=== PATIENT | male | born 1950 | race Caucasian/White ===

== ENCOUNTER 2017-01-08 16:31 | Emergency (ER) | payer MEDICARE, OTHER ==
[~2017-01-08 16:31] MED LIST: ACET500CAP PO; ASAB PO; CHEMO THERAPY IV; COZAAR100 MG PO; DEX4 PO; DSS PO; FERROUS SULF325 M1 PO; FLOMAX4 PO; FOLIC PO; HALF81 PO; HYDROCHLOROT25 MG PO; LEVAQUIN750 MG PO; LIPITOR10 PO; MULTIPLE VIT PO; MULTIVIT/MIN PO; NYQUIL PO; Nyquil PO; PRILO PO; [UNRECOGNIZED DRUG - REMARK] PO
[2017-01-08 16:39] LABS: BASOPHILS 0.2 %; BASOPHILS ABSOLUTE 0.02 10/3/uL (0.0-0.16); EOSINOPHILS ABSOLUTE 0.09 10/3/uL (0.0-0.53); ER CBC TAT 0 Hrs 07 Mins; HEMATOCRIT 32.7 % (40.0-51.0); HEMOGLOBIN 11.7 g/dL (13.6-17.8); IMMATURE GRANULOCYTES 1.2 %; IMMATURE GRANULOCYTES ABSOLUTE 0.11 10/3/uL (0.0-0.11); LYMPHOCYTES 11.3 %; LYMPHOCYTES ABSOLUTE 1.03 10/3/uL (0.67-4.30); MANUAL DIFF NO %; MEAN CORPUS HGB CONC 35.8 g/dL (32.0-36.0); MEAN CORPUSCULAR HEMOGLOB 37.5 pg (26.0-34.0); MEAN CORPUSCULAR VOLUME 104.8 fL (80-100); MEAN PLATELET VOLUME 8.6 fL (9.2-13.0); MONOCYTES 13.8 %; MONOCYTES ABSOLUTE 1.26 10/3/uL (0.21-1.20); NEUTROPHILS 72.5 %; NEUTROPHILS ABSOLUTE 6.59 10/3/uL (2.02-8.40); PLATELET COUNT 223 10/3/uL (150-400); RBC DISTRIBUTION WIDTH 13.9 % (12.0-16.0); RED CELL COUNT 3.12 10/6/uL (4.7-6.1); WHITE BLOOD CELLS 9.1 10/3/uL (4.5-10.5)
[2017-01-08 16:46] LABS: PROTIME (NOT ORD) 13.3 SEC (12.0-14.5)
[2017-01-08 16:54] LABS: A/G RATIO 1.2 (0.7-1.9); ALBUMIN 3.8 G/DL (3.5-5.0); ALKALINE PHOSPHATASE 85 U/L (45-117); BUN (BLOOD UREA NITROGEN) 10 MG/DL (6-23); CALCIUM, SERUM 9.2 MG/DL (8.5-10.4); CHLORIDE, SERUM 98 MMOL/L (96-112); CO2 (CARBON DIOXIDE) 27 MMOL/L (24-34); CREATININE 1.11 MG/DL (0.70-1.30); GFR AFRICAN AMERICAN 79 ML/MIN (>=60); GFR NON AFRICAN AMERICAN 68 ML/MIN (>=60); GLOBULIN 3.2 G/DL (2.5-4.1); GLUCOSE, SERUM 96 MG/DL (60-99); POTASSIUM, SERUM 4.2 MMOL/L (3.5-5.3); SGOT(AST) 25 U/L (5-40); SGPT(ALT) 20 U/L (5-65); SODIUM, SERUM 135 MMOL/L (135-148); TOTAL BILIRUBIN 1.3 MG/DL (0-1.2)
[2017-01-08 17:51] LABS: ASCORBIC ACID (UR NOT ORDER) NEG (NEG); BILIRUBIN, URINE NEGATIVE (NEG); ER URINALYSIS TAT 0 Hrs 07 Mins; KETONE, URINE NEGATIVE (NEG); LEUKOCYTE ESTERASE(NOT OR NEG (NEG); NITRITE (URINE) NEG (NEG); WBC (NOT ORDERED) (RFLEX) 1 (0-5)
[2017-01-08] MEDS ORDERED: FERROUS SULF325 M1 PO (18:05)
[2017-01-08] MEDS ORDERED: PRILO PO (18:05)
[2017-01-08] MEDS ORDERED: FOLIC PO (18:05)
[2017-01-08] MEDS ORDERED: MULTIVITAMI1 PO (18:06)
[2017-01-08] MEDS ORDERED: PRIN10 PO (18:06)
[2017-01-08] MEDS ORDERED: CHEMOTHERAPY IV (18:06)
[2017-01-08] MEDS ORDERED: ACET500CAP PO (18:07)
[2017-01-08] MEDS ORDERED: CLARIT10 PO (18:07)
[2017-01-18] MEDS ORDERED: SODCLTAB PO (22:00)
[2017-01-18] MEDS ORDERED: KEPPRA500 PO (22:00)
[2017-01-18] MEDS ORDERED: PRIN10 PO (22:00)
[2017-01-18] MEDS ORDERED: FOLIC PO (22:01)
[2017-01-18] MEDS ORDERED: PRILO PO (22:02)
[2017-01-18] MEDS ORDERED: [UNRECOGNIZED DRUG - OTHER] IV (22:04)
[2017-01-18] MEDS ORDERED: MULTIVIT/MIN PO (22:05)
[2017-01-18] MEDS ORDERED: CLARIT10 PO (22:06)
[2017-01-18] MEDS ORDERED: ACET500CAP PO (22:07)
[2017-01-18] MEDS ORDERED: FERROUS SULF325 M1 PO (22:08)
[2017-05-05] MEDS ORDERED: ANOROELLIPTA INH (10:17)
== END 2017-01-08 19:02 | disposition home or self-care (01) ==
LOC: ER 16:31
PROVIDERS: Emergency Medicine
DX: R56.9 Unspecified convulsions (principal); C34.90 Malignant neoplasm of unspecified part of unspecified bronchus or lung; J44.9 Chronic obstructive pulmonary disease, unspecified; I10 Essential (primary) hypertension; Z85.46 Personal history of malignant neoplasm of prostate; Z79.899 Other long term (current) drug therapy
CPT/HCPCS: 70450; 71010; 80053; 81001; 85025; 85610; 93005; 99285; A9270-GY

== ENCOUNTER 2017-01-18 22:13 | Inpatient (IN) | payer MEDICARE, OTHER ==
--- NOTE | ~2017-01-18 | EGD ---
EGD REPORT [facility] [address] [address] NAME: PANTERA BERMUDEZ : [birth year] STATUS : ADM IN PAT#: [id number] AGE: 66 ADM/REG DATE : 01/20/17 MR#: [id number] REPORT SERV DATE: 01/21/17 DICTATED BY: ELFEGO ERNANDEZ DATE: 01/21/17 REPORT STATUS : Draft TRANSCRIBED BY: [facility] DATE: 01/21/17 Pulmonology Patient Name: Pantera Bermudez Procedure Date: 01/21/2017 5:39 PM Date of : 1950 Attending MD: SOLANGE ERNANDEZ MD Procedure Date No Time: 01/21/2017 Procedure: Flexible rigid bronchoscopy Indications: Obstructive MACIEJ lesion emanating from the RUL Providers: SOLANGE ERNANDEZ MD Referring MD: JULIUS TREVINO Medicines: Lidocaine 2% 20 mL Complications: No immediate complications Procedure: Pre-Anesthesia Assessment: - A History and Physical has been performed. Patient meds and allergies have been reviewed. The risks and benefits of the procedure and the sedation options and risks were discussed with the patient. All questions were answered and informed consent was obtained. Patient identification and proposed procedure were verified prior to the procedure by the physician and the nurse in the pre-procedure area in the procedure room. Mental Status Examination: alert and oriented. Respiratory Examination: poor air movement. CV Examination: normal and RRR, no murmurs, no S3 or S4. ASA Grade Assessment: IV - A patient with severe systemic disease that is a constant threat to life. After reviewing the risks and benefits, the patient was deemed in satisfactory condition to undergo the procedure. The anesthesia plan was to use general anesthesia. Immediately prior to administration of medications, the patient was re-assessed for adequacy to receive sedatives. The heart rate, respiratory rate, oxygen saturations, blood pressure, adequacy of pulmonary ventilation, and response to care were monitored throughout the procedure. The physical status of the patient was re-assessed after the procedure. After obtaining informed consent, the Bronchoscope was introduced through the mouth, via the endotracheal tube (the patient was intubated for the procedure) and advanced to the tracheobronchial tree. The procedure was accomplished without difficulty. The patient tolerated the procedure well. Findings: The endotracheal tube is in good position. The visualized portion of the trachea is of normal caliber. The luis eduardo is sharp. The tracheobronchial EGD REPORT [address] [address] NAME: PANTERA BERMUDEZ : [birth year] STATUS : ADM IN [facility]#: [id number] AGE: 66 ADM/REG DATE : 01/20/17 MR#: [id number] REPORT SERV DATE: 01/21/17 DICTATED BY: ELFEGO ERNANDEZ DATE: 01/21/17 REPORT STATUS : Draft TRANSCRIBED BY: [employer] DATE: 01/21/17 tree was examined to at least the first subsegmental level. Obstructive MCAIEJ lesion emanating from the RUL with approximately 50-75% obstruction. The airway was dilated with a [employer] CRE balloon 10-11-12 to 12 mm OD. The FIO2 was lowered to less than 40%, and argon plasma coagulation therapy (0.8 L /min, 15 Russell) was performed for destruction of tissue/tumor. The patient was then reintubated with a Rigid Dumon 12 mm bronchoscope in the usual atraumatic fashion and selectively advanced into the MACIEJ. A 12 x 40 Merit Endotek Hybrid Stent was successfully deployed into the MACIEJ/RBI. See pictures. Impression: 12 x 40 Merit Endotek Hybrid Stent was successfully deployed into the MACIEJ/RBI. See pictures. Recommendation: - Await test results. - Chest X-ray post-procedure. - Mandatory Nebulizers: Albuterol and Mucomyst Attending Participation: I personally performed the entire procedure. SOLANGE ERNANDEZ MD 01/21/2017 6:25 PM This report has been signed electronically. Number of Addenda: 0 Note Initiated On: 01/21/2017 5:39 PM [address] [phone]
--- NOTE | ~2017-01-18 | CONSULT ---
Radiation Oncology Consult [address] [address] NAME: MARCIE BERMUDEZ : [birth year] STATUS : ADM IN PAT#: [id number] AGE: 66 ADM/REG DATE : 01/20/17 MR#: [id number] REPORT SERV DATE: 01/21/17 DICTATED BY: UGO HICKMAN DATE: 01/21/17 REPORT STATUS : Draft TRANSCRIBED BY: MODL DATE: 01/21/17 RADIATION ONCOLOGY CONSULTATION CHIEF COMPLAINT: Hemoptysis. HISTORY OF PRESENT ILLNESS: Mr. Bermudez is a pleasant, 66-year-old gentleman with metastatic non-small cell lung cancer. He has been treated with carboplatin and Abraxane on , maintenance pemetrexed, stereotactic radiosurgery for single brain metastasis and most recently, on clinical trial [id number]. He presented to the hospital with hemoptysis and was taken for bronchoscopy yesterday. Dr. Bowden took biopsies and stopped the patient's bleeding. He has no hemoptysis today. Dr. Bowdne plans to bronch again later today and place a stent. Currently, Mr. Bermudez is resting comfortably in bed. I was consulted to discuss possible palliative radiation therapy after the placement of the stent. PAST MEDICAL HISTORY: Prostate cancer in 2013, GERD in 2004, hyperlipidemia in 2003, hypertension in 2003. Previous stereotactic radiosurgery to the brain. SOCIAL HISTORY: The patient is . Retired. Quit smoking 12 years ago. FAMILY HISTORY: No family history of malignancy. REVIEW OF SYSTEMS: Comprehensive review of systems discussed in detail with Mr. Bermudez. Pertinent positives and negatives are included above in history of present illness. ALLERGIES: NO KNOWN DRUG ALLERGIES. MEDICATIONS: Medication list reviewed with the patient, included the patient's chart. PHYSICAL EXAMINATION: GENERAL: The patient is awake, alert, oriented, in no acute distress. VITAL SIGNS: Afebrile. Vital signs stable. HEENT: Extraocular movements are intact. Sclerae anicteric. Oral cavity is benign without erythema. NECK: Supple. No thyromegaly. LYMPHATICS: No cervical, supraclavicular, or axillary lymphadenopathy palpated. LUNGS: Clear to auscultation bilaterally. Appropriate work of breathing. HEART: Regular rate. Normal sinus rhythm. No murmurs, rubs, or gallops. ABDOMEN: Soft, nontender, nondistended. No hepatosplenomegaly. No apparent hernias. EXTREMITIES: No cyanosis, clubbing, or edema. SKIN: No rashes. No obvious jaundice. LABS AND OTHER DATA: As described above. ASSESSMENT/PLAN: 66-year-old gentleman with metastatic non-small cell lung cancer with new Radiation Oncology Consult [address] [place]. [address] NAME: MARCIE BERMUDEZ : [birth year] STATUS : ADM IN PAT#: [id number] AGE: 66 ADM/REG DATE : 01/20/17 MR#: [id number] REPORT SERV DATE: 01/21/17 DICTATED BY: UGO HICKMAN DATE: 01/21/17 REPORT STATUS : Draft TRANSCRIBED BY: LEANDRA DATE: 01/21/17 episode of hemoptysis while on clinical trial. I will discuss this case with Dr. Escalera. I plan to deliver a short course of palliative radiation therapy to the endobronchial mass after stent placement. Mr. Bermudez is scheduled to follow up with me in two weeks and we will keep this visit and plan to do CT simulation the same day. I plan to deliver approximately 3000 cGy in 10 fractions utilizing a 3D conformal approach. INFORMED CONSENT: The risks, benefits, and alternatives of this treatment have been discussed in detail with Mr. Bermudez. He wishes to proceed. I appreciate the opportunity to be involved in his care. MOOK/LEANDRA Ugo Hickman M.D. / [id number] CC: MD Edison Aquino M.D. Krishnendu Bhadra, M.D. Bertrand Marquess Anz III, M.D.
--- NOTE | ~2017-01-18 | DS ---
Discharge Summary [address] [place]. [address] NAME: MARCIE BERMUDEZ : [birth year] STATUS : DIS IN PAT#: [id number] AGE: 66 ADM/REG DATE : 01/20/17 MR#: [id number] REPORT SERV DATE: 01/23/17 DICTATED BY: JESSICA MUNOZ DATE: 01/22/17 REPORT STATUS : Draft TRANSCRIBED BY: MODL DATE: 01/22/17 ADMISSION DATE: 01/20/2017 DISCHARGE DATE: 01/22/2017 DISCHARGE DIAGNOSES: 1. Hemoptysis, status post bronchoscopy on 01/21/[address] Bowden. Stent placed. 2. Non-small cell lung cancer, right upper lobe with PEDODONTIST metastasis followed by Dr. Escalera. 3. Gastroesophageal reflux disease, stable. 4. Hypertension, stable. 5. Chronic obstructive pulmonary disease, stable. IMAGIN. Chest x-ray on 01/18/2017, impression, status post treatment for right upper lobe lung carcinoma. Residual right upper lobe lung mass. Interstitial thickening in the medial aspect of the right upper lobe. 2. CT of chest on 01/18/2017, impression, compared to prior study 10/09/2015, mass in the right upper lobe is decreased in size. However, there is a residual mass in the right superior hilar region measuring 5.7 cm x 2.9 cm. Previously, the mass measured 6 cm x 3 cm. Mass encompasses and occludes the right upper lobe bronchus and surrounds the bronchus intermedius. Tissue surrounding the bronchus intermedius is new compared to the previous study. Right upper lobe bronchus was occluded in the prior study. Enlarging paratracheal lymph nodes. Right paratracheal node measuring 3 x 3.3 cm transversely and 1.7 cm AP dimension previously measured 2.6 cm transversely and 1.1 cm AP dimension. Multiple parenchymal nodular densities in the right upper lobe were present on prior study. Most prominent limb of the left adrenal gland. This appears different in the axilla imaging comparing the CT chest studies. However, coronal demonstrates left adrenal gland is unchanged in appearance. The left adrenal gland has a different appearance on 10/11/2015, two days following the chest CT of 10/09/2015. I aspect the left adrenal gland is unchanged and the different appearance has to do with difference in respiratory effort. 3. Chest x-ray on 01/20/2017, no post procedure pneumothorax. 4. Chest x-ray on 01/21/2017, impression, interval placement of right mainstem endobronchial stent extending towards the bronchus intermedius. Mild improved patchy right perihilar consolidation. 5. Bronchoscopy on 01/20/[address] Bowden, impression, right on-site evaluation, preliminary cytology is positive for adenocarcinoma. Final results are pending. Additional biopsies held for future mononuclear testing. 6. Flexible rigid bronchoscopy, Dr. Bowden, 01/21/2017, impression, 12 x 40 Merit Endotek hybrid stent was successfully deployed into the MACIEJ/RBI. CONSULTATIONS: 1. Pulmonary, Dr. Shafer. 2. Radiation Oncology, Dr. Hickman. COURSE OF HOSPITAL STAY: Please refer to history and physical dictated by Dr. Canas on 01/19/2017 for complete admission details as well as consultation note by Dr. Shafer and Dr. Discharge Summary [address] [address] NAME: MARCIE BERMUDEZ : [birth year] STATUS : DIS IN PAT#: [id number] AGE: 66 ADM/REG DATE : 01/20/17 MR#: [id number] REPORT SERV DATE: 01/23/17 DICTATED BY: JESSICA MUNOZ DATE: 01/22/17 REPORT STATUS : Draft TRANSCRIBED BY: MODL DATE: 01/22/17 Marylou. This patient is a 66-year-old gentleman who presented with complaints of hemoptysis. He does present with a history of non-small cell lung cancer with known metastasis to the brain. The patient stated prior to admission he started coughing up blood. He does state that he has a chronic cough due to compression of the right upper lobe mass on the right upper lobe bronchus. The patient was admitted to the hospital for further treatment. 1. Hemoptysis, status post bron and flexible rigid bronchoscopy by Dr. Bowden. The patient did undergo above procedures, was able to tolerate well. Following procedure, patient had no bleeding noted. He will follow up as outpatient. He was provided a nebulizer as well as medication prior to discharge. 2. Non-small cell lung cancer, right upper lobe with PEDODONTIST metastasis. Oncology was consulted to follow the patient during his stay. Following the above procedures, the patient was evaluated by Dr. Hickman of Radiation Oncology. The patient discussed with Dr. Hickman possible palliative radiation therapy to the endobronchial mass after stent placement. Mr. Bermudez has a followup appointment in two weeks. Discussed treatment plan. 3. Gastroesophageal reflux disease. This was stable during the patient's hospitalization. He will continue home medications. 4. Hypertension. The patient's blood pressure has remained stable. We will continue home medications. 5. Chronic obstructive pulmonary disease. The patient will continue home medications as well as home nebulizer for shortness of breath. 6. 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 The patient's anemia has been monitored during his hospital stay. He has required no transfusions during this time. Hemoglobin upon discharge was 8.0, hematocrit 23.2. DISCHARGE MEDICATIONS: 1. Keppra 500 mg one p.o. twice daily. 2. Lisinopril 10 mg one p.o. daily. 3. Prilosec 20 mg one p.o. daily. 4. Albuterol inhaler nebulizer p.r.n. for shortness of breath. 5. Sodium chloride 1 g one p.o. twice daily. 6. Folic acid 1 p.o. every morning. 7. Clinical trial per Oncology. 8. Multivitamin one p.o. daily. 9. Claritin 10 mg one p.o. every morning. 10.Tylenol 500 mg p.o. p.r.n. for pain. 11.Ferrous sulfate 325 mg one p.o. every morning. The patient is being discharged home in hemodynamically stable condition. We will follow up with Dr. Escalera and Dr. Hickman outpatient. Discharge took less than 30 minutes. [facility] Discharge Summary [address] [place]. [address] NAME: MARCIE BERMUDEZ : [birth year] STATUS : DIS IN [facility]#: [id number] AGE: 66 ADM/REG DATE : 01/20/17 MR#: [id number] REPORT SERV DATE: 01/23/17 DICTATED BY: JESSICA MUNOZ DATE: 01/22/17 REPORT STATUS : Draft TRANSCRIBED BY: MODL DATE: 01/22/17 Jessica Munoz NP / [id number] CC: MD Edison Aquino M.D.
--- NOTE | ~2017-01-18 | CN ---
Consultation Report [address] [facility] [place]. [address] NAME: MARCIE BERMUDEZ : [birth year] STATUS : ADM Whit PAT#: [id number] AGE: 66 ADM/REG DATE : 01/18/17 MR#: [id number] REPORT SERV DATE: 01/20/17 DICTATED BY: MEGAN SHAFER DATE: 01/19/17 REPORT STATUS : Draft TRANSCRIBED BY: MODL DATE: 01/19/17 PULMONARY CONSULT NOTE DATE OF CONSULTATION: 01/19/2017 REASON FOR CONSULTATION: Hemoptysis. HISTORY OF PRESENT ILLNESS: Mr. Bermudez is a 66-year-old gentleman with a past medical history of known right upper lobe lung cancer with brain metastasis who was seen in the floor with his son and at the bedside. Patient noted that over the last several days he started having increased sputum production minimally. He then had pink sputum which turned into bright red blood. He denies having any fever, but did have some chills. He also notes that he had some radiation to the brain for brain metastases around two weeks ago. Patient states that his cancer was treated, however, this was doing well, but his tumor seems to have grown recently. Otherwise, patient has no further complaints. PAST MEDICAL HISTORY: Metastatic lung cancer, metastatic lung cancer to the brain, history of prostate cancer, COPD, reflux, hypertension, hyperlipidemia. HOME MEDICATIONS: Patient could not remember the medication list, reviewed home medications. Patient is on no antiplatelet or anticoagulation. ALLERGIES: NO KNOWN DRUG ALLERGIES. FAMILY HISTORY: Father had coronary artery disease, mother had congestive heart failure. SOCIAL HISTORY: Patient has a 40 plus pack year history of smoking. He has now quit. Occasional alcohol, no drug use. REVIEW OF SYSTEMS: All pertinent review of systems reviewed and is otherwise negative PHYSICAL EXAMINATION: VITAL SIGNS: Afebrile, heart rate anywhere between 74 and 116, respiratory rate 16 to 18. Oxygen saturation 95% on 2 L nasal cannula. Blood pressure currently 107 to 133. GENERAL: Patient is alert and oriented, no acute distress. NEUROLOGIC: Cranial nerve exam is normal. ENT: No JVD. PULMONARY: Patient actually has clear breath sounds bilaterally, minimal amount of rhonchorous breath sounds. CARDIAC: Regular rate, no murmurs. ABDOMEN: Soft, nontender, nondistended. EXTREMITIES: No lower extremity edema. Consultation Report [address] [address] NAME: MARCIE BERMUDEZ : [birth year] STATUS : ADM Whit PAT#: [id number] AGE: 66 ADM/REG DATE : 01/18/17 MR#: [id number] REPORT SERV DATE: 01/20/17 DICTATED BY: MEGAN SHAFER DATE: 01/19/17 REPORT STATUS : Draft TRANSCRIBED BY: MODL DATE: 01/19/17 LABORATORY EXAMINATION: Minimal anemia, good platelet count. INR 1. No abnormal kidney dysfunction. IMAGING: CT scan of the chest done 01/18/2017 shows a large right upper lobe tumor with endobronchial disease. Patient also has underlying lymphadenopathy. ASSESSMENT AND PLAN: Mr. Bermudez is a 66-year-old gentleman with a past medical history noted above who presents with what seems to be hemoptysis most likely from endobronchial cancer. After speaking with the patient of this finding, we agreed that we will undergo a bronchoscopy for airway examination, biopsy either through transbronchial needle aspiration or EBUS, and most likely may need to have a debulking procedure. I have asked my colleague, Dr. Bowden, to examine the images and consider bronchoscopy in the next 24 hours. Orders with endoscopy have been placed. Thank you very much for this consultation and allowing us to participate in your patient's care, please call us with any further questions or concerns. HFQ/MODHussein Megan Shafer MD / [id number] CC: Soila Gentile M.D.
--- NOTE | ~2017-01-18 | EGD ---
EGD REPORT [facility] [address] [address] NAME: PANTERA BERMUDEZ : 46 STATUS : ADM Whit PAT#: [id number] AGE: 66 ADM/REG DATE : 01/18/17 MR#: [id number] REPORT SERV DATE: 01/20/17 DICTATED BY: ELFEGO ERNANDEZ DATE: 01/20/17 REPORT STATUS : Draft [facility]ANSCR[facility]ED [facility]: [facility] DATE: 01/20/17 Pulmonology Patient Name: Pantera Bermudez Procedure Date: 01/20/2017 4:12 PM Date of : 1950 Attending MD: SOLANGE ERNANDEZ MD Procedure Date No Time: 01/20/2017 Procedure: Bronchoscopy Indications: Right upper lobe tumor and hemoptysis Providers: SOLANGE ERNANDEZ MD Referring MD: JULIUS TREVINO Medicines: Lidocaine 2% 20 mL Complications: No immediate complications Procedure: Pre-Anesthesia Assessment: - A History and Physical has been performed. Patient meds and allergies have been reviewed. The risks and benefits of the procedure and the sedation options and risks were discussed with the patient. All questions were answered and informed consent was obtained. Patient identification and proposed procedure were verified prior to the procedure by the physician and the nurse in the pre-procedure area in the procedure room. Mental Status Examination: alert and oriented. Airway Examination: normal oropharyngeal airway. Respiratory Examination: poor air movement. CV Examination: normal and RRR, no murmurs, no S3 or S4. ASA Grade Assessment: IV - A patient with severe systemic disease that is a constant threat to life. After reviewing the risks and benefits, the patient was deemed in satisfactory condition to undergo the procedure. The anesthesia plan was to use general anesthesia. Immediately prior to administration of medications, the patient was re-assessed for adequacy to receive sedatives. The heart rate, respiratory rate, oxygen saturations, blood pressure, adequacy of pulmonary ventilation, and response to care were monitored throughout the procedure. The physical status of the patient was re-assessed after the procedure. Findings: The endotracheal tube is in good position. The visualized portion of the trachea is of normal caliber. The luis eduardo is sharp. The tracheobronchial tree was examined to at least the first subsegmental level. Large friable tumor emanating from the RUL with greater 75% airway obstruction. Bronchoalveolar lavage was performed in the right upper lobe of the lung and sent for routine cytology. 30 mL of fluid were instilled. 10 mL were returned. The return was blood-tinged. EGD REPORT [address] [address] NAME: PANTERA BERMUDEZ : [birth year] STATUS : ADM Whit PAT#: [id number] AGE: 66 ADM/REG DATE : 01/18/17 MR#: [id number] REPORT SERV DATE: 01/20/17 DICTATED BY: ELFEGO ERNANDEZ DATE: 01/20/17 REPORT STATUS : Draft TRANSCRIBED BY: [employer] DATE: 01/20/17 Brushings were obtained in the right upper lobe of the lung and sent for routine cytology. One sample was obtained. Endobronchial biopsies were performed in the right upper lobe of the lung using a forceps and sent for pathology evaluation and histopathology examination. Two samples were obtained. Attempted cautery snare x 3 minor debulking of the large endobronchial tumor. Additional biopsies were sent for histopathology The FiO2 was lowered to less than 40% and argon plasma coagulation therapy (0.8 L/min, 15 Russell) was performed for destruction of tissue and hemostasis. Balloon bronchoplasty was performed with CRE 10-11-12 balloon to 12 mm OD. Impression: Rapid On-Site Evaluation (LIDIA): Preliminary cytology is POSITIVE for adenocarcinoma (final results are pending). Additional biopsies held for future molecular testing. Recommendation: - Await test results. - Chest X-ray. - Follow up with bronchoscopist tomorrow. - Flexible Rigid Bronchoscopy tomorrow for airway stent placement. - Refer to/consult with Radiation Oncology. Attending Participation: I personally performed the entire procedure. SOLANGE ERNANDEZ MD 01/20/2017 6:00 PM This report has been signed electronically. Number of Addenda: 0 Note Initiated On: 01/20/2017 4:12 PM [address] [id number]
--- NOTE | ~2017-01-18 | HP ---
History And Physical [id number] [place]. [address] NAME: MARCIE BERMUDEZ : [birth year] STATUS : ADM Whit PAT#: [id number] AGE: 66 ADM/REG DATE : 01/18/17 MR#: [id number] REPORT SERV DATE: 01/19/17 DICTATED BY: TOBI SANTOYO DATE: 01/19/17 REPORT STATUS : Draft TRANSCRIBED BY: MODL DATE: 01/19/17 DATE OF ADMISSION: 01/18/2017 CHIEF COMPLAINT: Hemoptysis or coughing up bright red blood. HISTORY OF PRESENT ILLNESS: This is a 66-year-old male with a history of non-small cell lung cancer with a known right upper lobe mass and prior history of small volume hemoptysis, brain metastasis, who presents to the emergency room at [facility] with the above-mentioned complaint. History is obtained from the patient, his , who is at bedside, and reviewing data available on the [employer] system. According to available data, Mr. Bermudez had been undergoing chemotherapy and radiation therapy for his non-small cell lung cancer with a metastatic brain lesion. Since yesterday he started noticing bright red blood after he coughs. He has had a chronic cough now due to extrinsic compression of the right upper lobe mass on the right upper lobe bronchus. He has had prior episodes of small volume hemoptysis, has had fiberoptic bronchoscopy and cauterization done by Dr. Bowden. Anyway, he continued to have this cough and hemoptysis, and decided to come to the emergency room to be evaluated. In the emergency room, a CTA of the chest was done showed a right upper lobe lung mass and Hospitalist Service is asked to admit him for further evaluation and treatment. At the time of my evaluation, he denied any chest pain or palpitations. He had no orthopnea. He had a cough, which was persistent and productive of bright red blood. No history of recent falls or loss of consciousness. No history of fevers, chills, nausea, vomiting, diarrhea, hematemesis, hematochezia, or hematuria. No other history of recent travel or exposures other than those mentioned above. PAST MEDICAL HISTORY: Significant for non-small cell lung cancer with a right upper lobe lung mass, with brain metastasis as well. He has a history of prostate cancer and colon cancer as well. He has a history of hyperlipidemia, COPD, gastroesophageal reflux disease, hypertension, hypercholesterolemia as well. SOCIAL HISTORY: He has a 40-pack year history or so, but has quit many years ago. He denies alcohol use or recreational drug use. FAMILY HISTORY: Noncontributory. MEDICATIONS: His medications at home were reviewed by me in the chart today and reordered by me. REVIEW OF SYSTEMS: As in history of present illness. All other systems were reviewed in detail and are quite unremarkable. PHYSICAL EXAMINATION: History And Physical [address] [address] NAME: MARCIE BERMUDEZ : [birth year] STATUS : ADM Whit PAT#: [id number] AGE: 66 ADM/REG DATE : 01/18/17 MR#: [id number] REPORT SERV DATE: 01/19/17 DICTATED BY: TOBI SANTOYO DATE: 01/19/17 REPORT STATUS : Draft TRANSCRIBED BY: LEANDRA DATE: 01/19/17 GENERAL: This is a pleasant 66-year-old, not in any acute distress. HEENT: His head is atraumatic and normocephalic. He is alert, awake, oriented to time, place, and person. His pupils are equal, reacting to light and accommodating. External ocular muscles are intact. Membranes are moist and pink. Sclerae are nonicteric. NECK: Supple with no jugular venous distention, lymphadenopathy, or thyromegaly. LUNGS: Clear to auscultation with no wheezes, rubs, or crackles. HEART: Heart sounds were regular with no murmurs, rubs, or gallops. ABDOMEN: Soft and nontender. Bowel sounds present. EXTREMITIES: No cyanosis, clubbing, or edema. NEUROLOGIC: Grossly intact. No focal sensory or motor deficits. Higher functions appeared intact. Gait was normal. VITAL SIGNS: His temperature today was 97.7, pulse 125, respirations 18 a minute, blood pressure was 126/79, and oxygen saturations were 99%, breathing 2 L of oxygen via nasal cannula. LABORATORY DATA: Reviewed on the [employer] system showed a sodium of 134, potassium 3.8, chloride 99, CO2 of 24, BUN was 10 with a creatinine of 1.08, and glucose was 94. His CBC showed a white blood cell count of 9,800, hemoglobin was 13.2, hematocrit 37.3, and platelet count was 315,000. His prothrombin time was 13.3, and INR was 1.0. Urinalysis was not done today. Films of the CTA of the chest, films were reviewed by me on the PACS today and interpreted by me. Per my interpretation, there is right upper lobe lung mass which appears to be encircling the right upper lobe pulmonary artery and there is also extrinsic compression of the right upper lobe bronchus. No other lobar consolidations or effusions are seen. A 12-lead EKG done in the emergency room was reviewed and interpreted by me. There is sinus tachycardia at a rate of 105 per minute. IMPRESSION: 1. Hemoptysis. 2. Non-small cell lung cancer, with a right upper lobe lung mass and brain metastasis. 3. Gastroesophageal reflux disease. 4. Hypertension. 5. Hypercholesterolemia. 6. Chronic obstructive pulmonary disease. PLAN: We will admit Mr. Bermudez to the Hospitalist Service with telemetry for close monitoring. We will keep him n.p.o. for now. Consult Pulmonary Service to evaluate him for possible fiberoptic bronchoscopy tomorrow. We will follow his CBC and transfuse if needed. We will also consult his oncologist, Dr. Escalera, to evaluate him in the morning. Meanwhile, we will go ahead and maximize the bronchodilator treatments for his COPD. Continue supplemental oxygen therapy, and place him on bedrest. We will continue other home medications and treatments as ordered, and place him on SCDs for DVT prophylaxis while he is here. I have discussed the above plans with the patient and his . Questions were History And Physical [address] [address] NAME: MARCIE BERMUDEZ : 46 STATUS : ADM Whit PAT#: [id number] AGE: 66 ADM/REG DATE : 01/18/17 MR#: [id number] REPORT SERV DATE: 01/19/17 DICTATED BY: TOBI SANTOYO DATE: 01/19/17 REPORT STATUS : Draft TRANSCRIBED BY: LEANDRA DATE: 01/19/17 answered. They are agreeable to the above recommendations. Hospitalist Service will be following him during his stay here. /LEANDRA Tobi Santoyo M.D. / [phone] CC: Edison Rider M.D.
[2017-01-18 21:36] LABS: BASOPHILS 0.5 %; BASOPHILS ABSOLUTE 0.05 10/3/uL (0.0-0.16); EOSINOPHILS ABSOLUTE 0.29 10/3/uL (0.0-0.53); ER CBC TAT 0 Hrs 05 Mins; HEMATOCRIT 37.3 % (40.0-51.0); HEMOGLOBIN 13.2 g/dL (13.6-17.8); IMMATURE GRANULOCYTES 0.4 %; IMMATURE GRANULOCYTES ABSOLUTE 0.04 10/3/uL (0.0-0.11); LYMPHOCYTES 14.1 %; LYMPHOCYTES ABSOLUTE 1.38 10/3/uL (0.67-4.30); MANUAL DIFF NO %; MEAN CORPUS HGB CONC 35.4 g/dL (32.0-36.0); MEAN CORPUSCULAR HEMOGLOB 36.5 pg (26.0-34.0); MEAN PLATELET VOLUME 8.6 fL (9.2-13.0); MONOCYTES 12.6 %; MONOCYTES ABSOLUTE 1.23 10/3/uL (0.21-1.20); NEUTROPHILS 69.4 %; NEUTROPHILS ABSOLUTE 6.79 10/3/uL (2.02-8.40); PLATELET COUNT 314 10/3/uL (150-400); RBC DISTRIBUTION WIDTH 12.9 % (12.0-16.0); RED CELL COUNT 3.62 10/6/uL (4.7-6.1); WHITE BLOOD CELLS 9.8 10/3/uL (4.5-10.5)
[2017-01-18 21:50] LABS: ALBUMIN 3.6 G/DL (3.5-5.0); BUN (BLOOD UREA NITROGEN) 10 MG/DL (6-23); CALCIUM, SERUM 9.7 MG/DL (8.5-10.4); CHLORIDE, SERUM 99 MMOL/L (96-112); CO2 (CARBON DIOXIDE) 24 MMOL/L (24-34); CREATININE 1.08 MG/DL (0.70-1.30); GFR AFRICAN AMERICAN 81 ML/MIN (>=60); GFR NON AFRICAN AMERICAN 70 ML/MIN (>=60); GLUCOSE, SERUM 94 MG/DL (60-99); POTASSIUM, SERUM 3.8 MMOL/L (3.5-5.3); SGOT(AST) 24 U/L (5-40); SGPT(ALT) 19 U/L (5-65); SODIUM, SERUM 134 MMOL/L (135-148)
[2017-01-18 21:51] LABS: A/G RATIO 0.8 (0.7-1.9); ALKALINE PHOSPHATASE 102 U/L (45-117); GLOBULIN 4.4 G/DL (2.5-4.1); TOTAL BILIRUBIN 0.7 MG/DL (0-1.2)
[~2017-01-18 22:13] MED LIST changes: +CHEMOTHERAPY IV; +CLARIT10 PO; +KEPPRA500 PO; +MULTIVITAMI1 PO; +PRIN10 PO; +SODCLTAB PO; +[UNRECOGNIZED DRUG - OTHER] IV
[2017-01-18 22:25] LABS: PARTIAL THROMBO TIME 32.3 SEC (22.5-37.2); PROTIME (NOT ORD) 13.3 SEC (12.0-14.5)
[2017-01-19 08:14] LABS: BASOPHILS 0.5 %; BASOPHILS ABSOLUTE 0.04 10/3/uL (0.0-0.16); EOSINOPHILS 2.2 %; EOSINOPHILS ABSOLUTE 0.16 10/3/uL (0.0-0.53); IMMATURE GRANULOCYTES 0.8 %; IMMATURE GRANULOCYTES ABSOLUTE 0.06 10/3/uL (0.0-0.11); LYMPHOCYTES 11.6 %; LYMPHOCYTES ABSOLUTE 0.86 10/3/uL (0.67-4.30); MEAN CORPUS HGB CONC 35.5 g/dL (32.0-36.0); MEAN CORPUSCULAR HEMOGLOB 36.7 pg (26.0-34.0); MEAN CORPUSCULAR VOLUME 103.5 fL (80-100); MEAN PLATELET VOLUME 8.5 fL (9.2-13.0); MONOCYTES 9.7 %; MONOCYTES ABSOLUTE 0.72 10/3/uL (0.21-1.20); NEUTROPHILS 75.2 %; NEUTROPHILS ABSOLUTE 5.55 10/3/uL (2.02-8.40); PLATELET COUNT 271 10/3/uL (150-400); RBC DISTRIBUTION WIDTH 12.9 % (12.0-16.0); WHITE BLOOD CELLS 7.4 10/3/uL (4.5-10.5)
[2017-01-19 08:17] LABS: HEMATOCRIT 29.3 % (40.0-51.0); HEMOGLOBIN 10.4 g/dL (13.6-17.8); MANUAL DIFF NO %; RED CELL COUNT 2.83 10/6/uL (4.7-6.1)
[2017-01-19 08:29] LABS: A/G RATIO 0.8 (0.7-1.9); ALKALINE PHOSPHATASE 80 U/L (45-117); BUN (BLOOD UREA NITROGEN) 20 MG/DL (6-23); CALCIUM, SERUM 8.9 MG/DL (8.5-10.4); CHLORIDE, SERUM 102 MMOL/L (96-112); CO2 (CARBON DIOXIDE) 25 MMOL/L (24-34); GFR AFRICAN AMERICAN 106 ML/MIN (>=60); GFR NON AFRICAN AMERICAN 92 ML/MIN (>=60); GLOBULIN 3.6 G/DL (2.5-4.1); GLUCOSE, SERUM 93 MG/DL (60-99); PHOSPHORUS, SERUM 3.2 MG/DL (2.5-4.5); POTASSIUM, SERUM 5.1 MMOL/L (3.5-5.3); SGOT(AST) 18 U/L (5-40); SGPT(ALT) 17 U/L (5-65); SODIUM, SERUM 135 MMOL/L (135-148); TOTAL BILIRUBIN 0.9 MG/DL (0-1.2); TOTAL PROTEIN 6.6 G/DL (6.0-8.5)
[2017-01-21 06:36] LABS: BASOPHILS 0.7 %; BASOPHILS ABSOLUTE 0.03 10/3/uL (0.0-0.16); EOSINOPHILS 3.4 %; EOSINOPHILS ABSOLUTE 0.15 10/3/uL (0.0-0.53); IMMATURE GRANULOCYTES 0.5 %; IMMATURE GRANULOCYTES ABSOLUTE 0.02 10/3/uL (0.0-0.11); LYMPHOCYTES 10.8 %; LYMPHOCYTES ABSOLUTE 0.47 10/3/uL (0.67-4.30); MEAN CORPUS HGB CONC 34.5 g/dL (32.0-36.0); MEAN CORPUSCULAR HEMOGLOB 35.9 pg (26.0-34.0); MEAN PLATELET VOLUME 8.4 fL (9.2-13.0); MONOCYTES ABSOLUTE 0.48 10/3/uL (0.21-1.20); NEUTROPHILS 73.6 %; PLATELET COUNT 193 10/3/uL (150-400); RBC DISTRIBUTION WIDTH 12.9 % (12.0-16.0)
[2017-01-21 06:39] LABS: HEMATOCRIT 23.2 % (40.0-51.0); MANUAL DIFF NO %; RED CELL COUNT 2.23 10/6/uL (4.7-6.1); WHITE BLOOD CELLS 4.4 10/3/uL (4.5-10.5)
[2017-01-21 06:52] LABS: CALCIUM, SERUM 8.7 MG/DL (8.5-10.4); CHLORIDE, SERUM 106 MMOL/L (96-112); CO2 (CARBON DIOXIDE) 24 MMOL/L (24-34); CREATININE 0.91 MG/DL (0.70-1.30); GFR AFRICAN AMERICAN 100 ML/MIN (>=60); GFR NON AFRICAN AMERICAN 86 ML/MIN (>=60); GLUCOSE, SERUM 92 MG/DL (60-99); POTASSIUM, SERUM 4.3 MMOL/L (3.5-5.3); SODIUM, SERUM 139 MMOL/L (135-148)
[2017-01-21 06:54] LABS: BUN (BLOOD UREA NITROGEN) 9 MG/DL (6-23)
[2017-01-22] MEDS ORDERED: ALBUTEROL5 INH (15:42)
[2017-01-22] MEDS ORDERED: MUCOMYST PO (15:44)
[2017-05-05] MEDS ORDERED: ANOROELLIPTA INH (10:17)
== END 2017-01-22 16:29 | disposition home or self-care (01) | DRG 167 ==
LOC: ER 22:13 → 2SO 23:59
PROVIDERS: Emergency Medicine; Hospitalist; Nurse Practitioner Acute Care; Nurse Practitioner Adult Health
DX: C34.11 Malignant neoplasm of upper lobe, right bronchus or lung (principal); C79.31 Secondary malignant neoplasm of brain; J44.9 Chronic obstructive pulmonary disease, unspecified; R04.2 Hemoptysis; K21.9 Gastro-esophageal reflux disease without esophagitis; I10 Essential (primary) hypertension; E78.00 Pure hypercholesterolemia, unspecified; Z87.891 Personal history of nicotine dependence; Z85.46 Personal history of malignant neoplasm of prostate; Z82.49 Family history of ischemic heart disease and other diseases of the circulatory system; E78.5 Hyperlipidemia, unspecified; D63.0 Anemia in neoplastic disease
CPT/HCPCS: 36415; 71010; 71275; 80048; 80053; 82962; 83735; 84100; 85025; 85379; 85610; 85730; 86850; 86900; 86901; 88112; 88305; 88333; 93005; 94640; 99285; A9270-GY; C1725; C1726; C1876; C1894; J2370; J2405; J2710; J3010; J3475; Q9967

== ENCOUNTER 2017-03-09 11:09 | Day surgery (SDC) | payer MEDICARE, OTHER ==
--- NOTE | ~2017-03-09 | EGD ---
EGD REPORT [facility] [address] [place] [address] NAME: PANTERA BERMUDEZ : 46 STATUS : REG [facility]#: [id number] AGE: 66 ADM/REG DATE : 03/09/17 MR#: [id number] REPORT SERV DATE: 03/09/17 DICTATED BY: ELFEGO ERNANDEZ DATE: 03/09/17 REPORT STATUS : Draft [facility] DATE: 03/09/17 Pulmonology Patient Name: Pantera Bermudez Procedure Date: 03/09/2017 12:09 PM Date of : 1950 Attending MD: SOLNAGE ERNANDEZ MD Procedure Date No Time: 03/09/2017 Procedure: Flexible rigid bronchoscopy Indications: Right Mainstem/RBI stent re-evaluation s/p chemoradiation therapy. Most recent CT suggests significant improvement. Possible stent removal. Increased cough Providers: SOLANGE ERNANDEZ MD Referring MD: Carolina SUAREZ Medicines: Lidocaine 2% 20 mL Complications: No immediate complications Procedure: Pre-Anesthesia Assessment: - ASA Grade Assessment: III - A patient with severe systemic disease. - A History and Physical has been performed. Patient meds and allergies have been reviewed. The risks and benefits of the procedure and the sedation options and risks were discussed with the patient. All questions were answered and informed consent was obtained. Patient identification and proposed procedure were verified prior to the procedure by the physician and the nurse in the pre-procedure area in the procedure room. Mental Status Examination: normal. Airway Examination: normal oropharyngeal airway. Respiratory Examination: poor air movement. CV Examination: normal and RRR, no murmurs, no S3 or S4. ASA Grade Assessment: IV - A patient with severe systemic disease that is a constant threat to life. After reviewing the risks and benefits, the patient was deemed in satisfactory condition to undergo the procedure. The anesthesia plan was to use general anesthesia. Immediately prior to administration of medications, the patient was re-assessed for adequacy to receive sedatives. The heart rate, respiratory rate, oxygen saturations, blood pressure, adequacy of pulmonary ventilation, and response to care were monitored throughout the procedure. The physical status of the patient was re-assessed after the procedure. After obtaining informed consent, the Bronchoscope was introduced through the mouth, via laryngeal mask airway and advanced to the tracheobronchial tree. The EGD REPORT [address] [place]. [address] NAME: PANTERA BERMUDEZ : [birth year] STATUS : REG [facility]#: [id number] AGE: 66 ADM/REG DATE : 03/09/17 MR#: [id number] REPORT SERV DATE: 03/09/17 DICTATED BY: ELFEGO ERNANDEZ DATE: 03/09/17 REPORT STATUS : Draft [facility]ANS[facility]IB[facility]: [facility] DATE: 03/09/17 procedure was accomplished without difficulty. The patient tolerated the procedure well. Findings: The laryngeal mask airway is in normal position. The vocal cords move normally with breathing. The subglottic space is normal. The trachea is of normal caliber. The luis eduardo is sharp. The tracheobronchial tree was examined to at least the first subsegmental level. The MACIEJ/RBI hybrid stent is in place. There appears to be significant improvement in terms of bronchostenosis secondary to tumor burden. Granulation tissue was noted at the distal end of the hybrid stent. The LMA was removed and the patient was reintubated with a Rigid bronchoscope in the usual atraumatic fashion and advanced into the MACIEJ. The stent was grasped with white handle forceps and removed through the rigid scope. Endobronchial biopsies were performed in the distal anterior trachea and bronchus intermedius of the lung using a forceps and sent for histopathology examination. Two samples were obtained. Bronchoalveolar lavage was performed in the right upper lobe of the lung and sent for routine cytology. 60 mL of fluid were instilled. 20 mL were returned. The return was blood-tinged and cellular. Brushings were obtained in the bronchus intermedius of the lung and sent for routine cytology. Therapeutic aspiration of the RUL was performed. Melody balloon bronchoplasty performed for 75% obstruction of the RUL due to a combination of endoluminal tissue and extrinsic puckering. The RUL airway is now patent. Impression: MACIEJ/RBI STENT REMOVED Recommendation: - Await test results. - Follow up in clinic. Attending Participation: I personally performed the entire procedure. SOLANGE ERNANDEZ MD 03/09/2017 1:32 PM This report has been signed electronically. Number of Addenda: 0 Note Initiated On: 03/09/2017 12:09 PM [address] [place] [id number]
[~2017-03-09 11:09] MED LIST changes: +ALBUTEROL5 INH; +MUCOMYST PO
[2017-03-09 11:41] LABS: BASOPHILS 0.1 %; BASOPHILS ABSOLUTE 0.01 10/3/uL (0.0-0.16); EOSINOPHILS ABSOLUTE 0.14 10/3/uL (0.0-0.53); IMMATURE GRANULOCYTES 0.4 %; IMMATURE GRANULOCYTES ABSOLUTE 0.03 10/3/uL (0.0-0.11); LYMPHOCYTES 8.8 %; LYMPHOCYTES ABSOLUTE 0.62 10/3/uL (0.67-4.30); MEAN CORPUS HGB CONC 35.3 g/dL (32.0-36.0); MEAN CORPUSCULAR HEMOGLOB 33.2 pg (26.0-34.0); MEAN PLATELET VOLUME 8.1 fL (9.2-13.0); MONOCYTES ABSOLUTE 0.56 10/3/uL (0.21-1.20); NEUTROPHILS 80.7 %; NEUTROPHILS ABSOLUTE 5.65 10/3/uL (2.02-8.40); RBC DISTRIBUTION WIDTH 12.9 % (12.0-16.0)
[2017-03-09 11:42] LABS: HEMATOCRIT 32.6 % (40.0-51.0); HEMOGLOBIN 11.5 g/dL (13.6-17.8); RED CELL COUNT 3.46 10/6/uL (4.7-6.1)
[2017-03-09 11:43] LABS: MANUAL DIFF NO %; MEAN CORPUSCULAR VOLUME 94.2 fL (80-100); PLATELET COUNT 349 10/3/uL (150-400)
[2017-03-09 11:58] LABS: BUN (BLOOD UREA NITROGEN) 9 MG/DL (6-23); CALCIUM, SERUM 9.6 MG/DL (8.5-10.4); CHLORIDE, SERUM 98 MMOL/L (96-112); CO2 (CARBON DIOXIDE) 27 MMOL/L (24-34); CREATININE 1.03 MG/DL (0.70-1.30); GFR AFRICAN AMERICAN 86 ML/MIN (>=60); GFR NON AFRICAN AMERICAN 74 ML/MIN (>=60); GLUCOSE, SERUM 100 MG/DL (60-99); POTASSIUM, SERUM 4.8 MMOL/L (3.5-5.3)
[2017-03-09 12:00] LABS: SODIUM, SERUM 131 MMOL/L (135-148)
[2017-03-09 12:03] LABS: PARTIAL THROMBO TIME 30.2 SEC (22.5-37.2); PROTIME (NOT ORD) 13.3 SEC (12.0-14.5)
[2017-03-09 16:19] LABS: BD FL LYMPH (NOT ORD) 10 %; BF BASO (NOT OF) 0 %; BF LARGE MONONUCLEAR 1 %; BODY FLUID EOS (NOT ORD) 0 %; BODY FLUID SEG (NOT ORD) 89 %
[2017-03-09 16:20] LABS: BF TOTAL CELL CT (NOT ORD 3504 /MM3; BODY FLUID RBC (NOT ORD) 12000 /MM3
[2017-03-09 16:21] LABS: BD FL SOURCE (NOT ORD) BAL
[2017-05-05] MEDS ORDERED: ANOROELLIPTA INH (10:17)
== END 2017-03-09 16:01 | disposition home or self-care (01) ==
LOC: DMU 11:09
PROVIDERS: Anesthesiology; Internal Medicine
PROC: 0BB18ZX Excision of Trachea, Via Natural or Artificial Opening Endoscopic, Diagnostic (ICD-10-PCS; principal; 2017-03-09 12:30)
PROC: 0B9C8ZX Drainage of Right Upper Lung Lobe, Via Natural or Artificial Opening Endoscopic, Diagnostic (ICD-10-PCS; 2017-03-09 12:30)
PROC: 0BB38ZX Excision of Right Main Bronchus, Via Natural or Artificial Opening Endoscopic, Diagnostic (ICD-10-PCS; 2017-03-09 12:30)
DX: J04.10 Acute tracheitis without obstruction (principal); J44.9 Chronic obstructive pulmonary disease, unspecified; G40.909 Epilepsy, unspecified, not intractable, without status epilepticus; K21.9 Gastro-esophageal reflux disease without esophagitis; Z85.118 Personal history of other malignant neoplasm of bronchus and lung; Z79.899 Other long term (current) drug therapy; C79.31 Secondary malignant neoplasm of brain; C34.11 Malignant neoplasm of upper lobe, right bronchus or lung
CPT/HCPCS: 70553; 71010; 80048; 85025; 85610; 85730; 87015; 87070; 87077; 87102; 87116; 87186; 87205; 88112; 88305; 89051; 93005; 94640; A9270-GY; A9577; C1757; J2405